=== PATIENT | male | born 1975 | race Caucasian/White ===

== ENCOUNTER → 2018-03-08 | Outpatient (CLI) | payer OTHER ==
[~2018-03-08] MED LIST: ABILIFY15 MG PO; AMITRIPTYLINE H10 M3 PO; ASPIRIN325 PO; CEFPODOXIME PR200 M1 PO; CIALIS2.5 MG; CYMBALTA PO; EFFEXOR XR37.5 MG PO; FLEXERIL PO; IBUPROFEN 800800 M1 PO; LAMICTAL XR200 MG PO; LAMOTRIGINE200 MG PO; LUNESTA2 MG PO; LUNESTA3 MG PO; MSL20MG/ML IMPLANT; Morphine Pump; NORCO 10-325 T1 EACH PO; NORCO 5-325 TA1 EACH PO; PREDNISONE 10 M10 MG PO; SEROQUEL 100 M100 MG; VENTOLIN HFA INH8 GM INH; VIAGRA50 MG; VIIBRYD40 MG; Venlafaxine PO; XANAX 0.25 MG0.25 MG; ZPAK PO
--- NOTE | 2018-03-15 10:43 | 24HR ---
[place] [address] HOLTER MONITOR REPORT Name: SHUKRIMAIKOL FLETCHER Room: [facility]#: [id number] Admission: 03/08/18 Attend Phys: Physician not on s Discharge: Date of : 77 Date of Service: 03/14/1850 Report #: [id number] THIS REPORT FOR: //name// [facility] Test Date: 2018-03-14 Test Time: 09:50:11 Pat Name: MAIKOL WATT Department: Room: Gender: Ssds Mk 2 Advanced Operator: : 1975 Requested By: Physician staff Order Number: [id number] Elvis MD: Chandler Rodriguez Interpretive Statements 1. sinus rhythm with sinus tachycardia 2. no symptoms recorded in diary Electronically Signed On 03-15-2018 10:43:00 CDT by Chandler Rodriguez [email or web address] <ELECTRONICALLY SIGNED> By: Chandler Rodriguez MD, [facility] 03/15/18 1043 0950 0950 Chandler Rodriguez MD, FACC /EPI
== END ==
LOC: M.CRD 10:20
DX: I49.8 Other specified cardiac arrhythmias (principal); R03.0 Elevated blood-pressure reading, without diagnosis of hypertension; R00.0 Tachycardia, unspecified; R00.9 Unspecified abnormalities of heart beat; G47.33 Obstructive sleep apnea (adult) (pediatric); F41.9 Anxiety disorder, unspecified

== ENCOUNTER 2018-10-14 17:17 | Emergency (ER) | payer OTHER ==
[~2018-10-14] VITALS: Ht 182.9 cm; Wt 81.7 kg
[2018-10-14] MEDS ORDERED: AMITRIPTYLINE H75 M2 PO (17:50)
[2018-10-14] MEDS ORDERED: NEURONTIN 300300 M1 PO (17:51)
[2018-10-14] MEDS ORDERED: EFFEXOR XR75 MG PO (17:51)
[2018-10-14] MEDS ORDERED: FLOMAX0.4 MG PO (17:51)
[2018-10-14] MEDS ORDERED: FLEXERIL PO (17:52)
[2018-10-14] MEDS ORDERED: AMBIEN 5 MG TABL5 M1 PO (17:52)
[2018-10-14] MEDS ORDERED: CLONAZEPAM 0.50.5 M1 PO (17:52)
[2018-10-14 17:56] LABS: URINE BILIRUBIN NEGATIVE (Negative); URINE BLOOD NEGATIVE (Negative); URINE CLARITY CLEAR; URINE COLOR STRAW; URINE GLUCOSE-RANDOM NEGATIVE (Negative); URINE KETONES NEGATIVE (Negative); URINE LEUKOCYTES-REFLEX NEGATIVE (Negative); URINE NITRITE-REFLEX NEGATIVE (Negative); URINE PROTEIN NEGATIVE (Negative); URINE SPECIFIC GRAVITY <= 1.005 (1.005-1.030); URINE UROBILINOGEN 0.2 E.U./dl (0.2-1.0)
[2018-10-14 18:03] LABS: AMP/METHAMP Negative (Negative); BARBITURATES POSITIVE (Negative); BENZODIAZEPINES Negative (Negative); COCAINE Negative (Negative); METHADONE Negative (Negative); OPIATES Negative (Negative); PCP Negative (Negative); THC Negative (Negative)
[2018-10-14 18:28] LABS: ABSOLUTE EOSINOPHILS 0.1 thou/uL (0.0-0.7); ABSOLUTE LYMPHOCYTES 1.9 thou/uL (0.8-5.3); ABSOLUTE MONOCYTES 0.6 thou/uL (0.0-1.2); ABSOLUTE NEUTROPHILS 4.3 thou/uL (1.6-8.1); BASOPHILS 0.5 %; EOSINOPHILS 1.6 %; HEMATOCRIT 43.2 % (42.0-52.0); HEMOGLOBIN 15.3 gm/dL (14.0-18.0); LYMPHOCYTES 27.5 %; MCH 31.2 pg (26.0-34.0); MCHC 35.3 g/dL (28.0-37.0); MCV 88.2 fL (80.0-100.0); MONOCYTES 8.2 %; MPV 7.7 fl. (7.2-11.1); NUCLEATED RBCS 0 /100WBC; PLATELET COUNT* 387 thou/uL (150-400); POLYS 62.2 %; RBC 4.89 mil/uL (4.50-6.00); RDW-CV 12.7 % (10.5-14.5); WBC 6.9 thou/uL (4.0-11.0)
[2018-10-14 18:52] LABS: ALBUMIN 4.4 g/dL (3.4-5.0); CALCIUM 9.3 mg/dL (8.5-10.1); CREATININE 0.7 mg/dL (0.6-1.3); POTASSIUM 3.8 mmol/L (3.5-5.1); TOTAL BILIRUBIN 0.3 mg/dL (<0.1-1.0); TOTAL PROTEIN 8.6 g/dL (6.4-8.2)
[2018-10-14] MEDS ORDERED: CLEOCIN HCL300 MG PO (20:04)
[2018-10-14 20:09] VITALS: BP 144/78
== END 2018-10-14 20:09 | disposition home or self-care (01) ==
LOC: M.ERS 17:17
PROVIDERS: Nurse Practitioner Family
DX: M54.5 Low back pain (principal); K04.7 Periapical abscess without sinus; R10.32 Left lower quadrant pain; F31.9 Bipolar disorder, unspecified; G43.909 Migraine, unspecified, not intractable, without status migrainosus; F17.210 Nicotine dependence, cigarettes, uncomplicated; Z79.899 Other long term (current) drug therapy

== ENCOUNTER 2019-05-02 13:54 | Emergency (ER) | payer OTHER ==
[~2019-05-02] VITALS: Ht 182.9 cm; Wt 81.2 kg
[~2019-05-02 13:54] MED LIST changes: +AMBIEN 5 MG TABL5 M1 PO; +AMITRIPTYLINE H75 M2 PO; +CLEOCIN HCL300 MG PO; +CLONAZEPAM 0.50.5 M1 PO; +EFFEXOR XR75 MG PO; +FLOMAX0.4 MG PO; +NEURONTIN 300300 M1 PO
[2019-05-02] MEDS ORDERED: LIPITOR 20 MG T20 M1 PO (14:11)
[2019-05-02] MEDS ORDERED: VIBRID (14:11)
[2019-05-02 14:18] LABS: URINE BLOOD NEGATIVE (Negative); URINE CLARITY CLEAR; URINE COLOR YELLOW; URINE GLUCOSE-RANDOM NEGATIVE (Negative); URINE KETONES 2+ (Negative); URINE LEUKOCYTES-REFLEX NEGATIVE (Negative); URINE NITRITE-REFLEX NEGATIVE (Negative); URINE PROTEIN TRACE (Negative); URINE SPECIFIC GRAVITY >= 1.030 (1.005-1.030); URINE UROBILINOGEN 0.2 E.U./dl (0.2-1.0)
[2019-05-02 14:20] LABS: ICTOTEST (BILI CONFIRMATORY) Negative (Negative); URINE BILIRUBIN 2+ (Negative)
[2019-05-02 14:37] LABS: ABSOLUTE BASOPHILS 0.1 thou/uL (0.0-0.2); ABSOLUTE EOSINOPHILS 0.1 thou/uL (0.0-0.7); ABSOLUTE LYMPHOCYTES 1.7 thou/uL (0.8-5.3); ABSOLUTE MONOCYTES 0.8 thou/uL (0.0-1.2); ABSOLUTE NEUTROPHILS 7.3 thou/uL (1.6-8.1); BASOPHILS 0.7 %; EOSINOPHILS 1.3 %; LYMPHOCYTES 17.3 %; MCH 34.8 pg (26.0-34.0); MCHC 37.5 g/dL (28.0-37.0); MCV 92.6 fL (80.0-100.0); MONOCYTES 7.7 %; MPV 7.6 fl. (7.2-11.1); NUCLEATED RBCS 0 /100WBC; PLATELET COUNT* 486 thou/uL (150-400); RDW-CV 13.2 % (10.5-14.5)
[2019-05-02 14:39] LABS: HEMATOCRIT 48.8 % (42.0-52.0); HEMOGLOBIN 17.4 gm/dL (14.0-18.0); RBC 5.34 mil/uL (4.50-6.00)
[2019-05-02 14:41] LABS: CALCIUM 9.2 mg/dL (8.5-10.1); CREATININE 0.9 mg/dL (0.6-1.3); POTASSIUM 3.6 mmol/L (3.5-5.1)
[2019-05-02 14:45] LABS: ALBUMIN 3.8 g/dL (3.4-5.0); TOTAL BILIRUBIN 0.6 mg/dL (<0.1-1.0); TOTAL PROTEIN 7.8 g/dL (6.4-8.2)
[2019-05-02] MEDS ORDERED: COMPAZINE10 MG PO (17:19)
[2019-05-02] MEDS ORDERED: BENTYL 10 MG CA10 M1 PO (17:19)
[2019-05-02 17:38] VITALS: BP 122/68
== END 2019-05-02 17:41 | disposition home or self-care (01) ==
LOC: M.ERS 13:54
PROVIDERS: Nurse Practitioner Family
DX: K52.9 Noninfective gastroenteritis and colitis, unspecified (principal); F17.210 Nicotine dependence, cigarettes, uncomplicated; F31.9 Bipolar disorder, unspecified; G43.909 Migraine, unspecified, not intractable, without status migrainosus; G47.00 Insomnia, unspecified; Z98.890 Other specified postprocedural states

== ENCOUNTER 2019-05-10 20:29 | Emergency (ER) | payer OTHER ==
[~2019-05-10] VITALS: Ht 195.6 cm; Wt 88.1 kg
[~2019-05-10 20:29] MED LIST changes: +BENTYL 10 MG CA10 M1 PO; +COMPAZINE10 MG PO; +LIPITOR 20 MG T20 M1 PO; +VIIBRYD40 MG PO
[2019-05-10] MEDS ORDERED: AUGMENTIN 875-1 EACH PO (20:47)
[2019-05-10] MEDS ORDERED: MEDROLDOSEPACK PO (20:47)
[2019-05-10 21:19] LABS: ABSOLUTE LYMPHOCYTES 1.5 thou/uL (0.8-5.3); ABSOLUTE MONOCYTES 0.4 thou/uL (0.0-1.2); ABSOLUTE NEUTROPHILS 5.9 thou/uL (1.6-8.1); BASOPHILS 0.6 %; EOSINOPHILS 0.2 %; HEMATOCRIT 36.6 % (42.0-52.0); HEMOGLOBIN 12.9 gm/dL (14.0-18.0); LYMPHOCYTES 19.1 %; MCH 31.7 pg (26.0-34.0); MCHC 35.2 g/dL (28.0-37.0); MCV 90.1 fL (80.0-100.0); MONOCYTES 5.5 %; MPV 7.1 fl. (7.2-11.1); NUCLEATED RBCS 0 /100WBC; PLATELET COUNT* 492 thou/uL (150-400); POLYS 74.6 %; RBC 4.07 mil/uL (4.50-6.00); WBC 7.9 thou/uL (4.0-11.0)
[2019-05-10 21:29] LABS: CREATININE 0.7 mg/dL (0.6-1.3); POTASSIUM 3.8 mmol/L (3.5-5.1)
[2019-05-10 21:38] LABS: ALBUMIN 2.1 g/dL (3.4-5.0); TOTAL BILIRUBIN 0.1 mg/dL (<0.1-1.0); TOTAL PROTEIN 4.8 g/dL (6.4-8.2)
[2019-05-10] MEDS ORDERED: POTASSIUM20 PO (21:52)
[2019-05-10] MEDS ORDERED: LASIX 40 MG TAB40 M2 PO (21:52)
[2019-05-10 22:02] VITALS: BP 123/74
== END 2019-05-10 22:03 | disposition home or self-care (01) ==
LOC: M.ERS 20:29
PROVIDERS: Family Medicine
DX: R60.0 Localized edema (principal); F31.9 Bipolar disorder, unspecified; G43.909 Migraine, unspecified, not intractable, without status migrainosus; F17.210 Nicotine dependence, cigarettes, uncomplicated; Z98.890 Other specified postprocedural states

== ENCOUNTER → 2019-05-15 | Outpatient (CLI) | payer OTHER ==
[~2019-05-15] MED LIST changes: +AUGMENTIN 875-1 EACH PO; +KEFLEX500 M2 PO; +LASIX 40 MG TAB40 M2 PO; +MEDROLDOSEPACK PO; +POTASSIUM20 PO; +SPIRONOLACTONE100 M1 PO
--- NOTE | 2019-05-15 12:29 | 2DMMODE ---
[place] [address] 2 D/M-MODE ECHOCARDIOGRAM Name: MAIKOL WATT Room: [facility]#: [id number] Admission: 05/15/19 Attend Phys: Priscilla Ramirez Discharge: Date of : 77 Date of Service: 05/15/19 1228 Report #: [id number] THIS REPORT FOR: //name// APPROVED REPORT Study performed: 05/15/2019 11:31:24 EXAM: Comprehensive 2D, Doppler, and color-flow Echocardiogram Patient Location: Out-Patient BSA: 2.13 HR: 102 bpm BP: 102/70 mmHg Other Information Study Quality: Good Indications Peripheral Edema 2D Dimensions IVSd: 10.93 (7-11mm) LVOT Diam: 20.42 (18-24mm) LVDd: 50.31 mm PWd: 9.52 (7-11mm) Ascending Ao: 27.88 (22-36mm) LVDs: 29.75 (25-40mm) Aortic Root: 27.27 mm Volumes Left Atrial Volume (Systole) LA ESV Index: 16.60 mL/m2 Aortic Valve AoV Peak Abdon.: 0.95 m/s AO Peak Gr.: 3.64 mmHg LVOT Max P.14 mmHg AO Mean Gr.: 2.18 mmHg LVOT Mean P.85 mmHg LVOT Max V: 1.02 m/s AO V2 VTI: 16.04 cm LVOT Mean V: 0.62 m/s HUANG (VTI): 3.73 cm2 LVOT V1 VTI: 18.24 cm Mitral Valve E/A Ratio: 1.35 MV Decel. Time: 163.68 ms MV E Max Abdon.: 0.76 m/s MV PHT: 47.47 ms MVA (PHT): 4.63 [place]2 [place] [address] 2 D/M-MODE ECHOCARDIOGRAM Name: MAIKOL WATT Room: [facility]#: [id number] Admission: 05/15/19 Attend Phys: Priscilla Ramirez Discharge: Date of : 77 Date of Service: 05/15/19 1228 Report #: [id number] TDI E/Lateral E': 7.60 E/Medial E': 5.85 Medial E' Abdon.: 0.13 m/s Lateral E' Abdon.: 0.10 m/s Pulmonary Valve PV Peak Abdon.: 1.06 m/s PV Peak Gr.: 4.50 mmHg Tricuspid Valve RAP Estimate: 5.00 mmHg TR Peak Gr.: 20.90 mmHg RVSP: 25.90 mmHg PA Pressure: 25.90 mmHg Left Ventricle The left ventricle is normal size. There is normal LV segmental wall motion. There is normal left ventricular wall thickness. Left ventricular systolic function is normal. The left ventricular ejection fraction is within the normal range. LVEF is 60%. The left ventricular diastolic function is normal. Right Ventricle The right ventricle is normal size. The right ventricular systolic function is normal. Atria The left atrium size is normal. The right atrium size is normal. Aortic Valve The aortic valve is normal in structure. No aortic regurgitation is present. There is no aortic valvular stenosis. Mitral Valve The mitral valve is normal in structure. There is no mitral valve regurgitation noted. No evidence of mitral valve stenosis. Tricuspid Valve The tricuspid valve is normal in structure. Mild tricuspid regurgitation. Pulmonic Valve The pulmonary valve is normal in structure. There is no pulmonic valvular regurgitation[place] [address] 2 D/M-MODE ECHOCARDIOGRAM Name: MAIKOL WATT Room: [facility]#: [id number] Admission: 05/15/19 Attend Phys: Priscilla Ramirez Discharge: Date of : 77 Date of Service: 05/15/19 1228 Report #: [id number] The aortic root is normal in size. IVC is normal in size and collapses >50% with inspiration. Pericardium There is no pericardial effusion. <Conclusion> The left ventricle is normal size. There is normal left ventricular wall thickness. Left ventricular systolic function is normal. The left ventricular ejection fraction is within the normal range. LVEF is 60%. The left ventricular diastolic function is normal. The right ventricle is normal size. The left atrium size is normal. The aortic valve is normal in structure. The mitral valve is normal in structure. The tricuspid valve is normal in structure. IVC is normal in size and collapses >50% with inspiration. There is no pericardial effusion. There is normal LV segmental wall motion. <ELECTRONICALLY SIGNED> By: Freeman Bullard MD, FACC 05/15/19 1228 1228 1228 Freeman Bullard MD, FACC /INF
== END ==
LOC: M.CRD 11:30
DX: I07.1 Rheumatic tricuspid insufficiency (principal); R60.0 Localized edema

== ENCOUNTER 2019-05-18 18:19 | Inpatient (IN) | payer OTHER ==
[~2019-05-18] VITALS: Ht 182.9 cm; Wt 89.8 kg
[~2019-05-18 18:19] MED LIST changes: -KEFLEX500 M2 PO; -SPIRONOLACTONE100 M1 PO
[2019-05-18 18:20] VITALS: BP 130/70
[2019-05-18] MEDS ORDERED: SPIRONOLACTONE100 M1 PO (18:29)
[2019-05-18] MEDS ORDERED: KEFLEX500 M2 PO (18:30)
[2019-05-18 19:10] LABS: ABSOLUTE BASOPHILS 0.1 thou/uL (0.0-0.2); ABSOLUTE EOSINOPHILS 0.3 thou/uL (0.0-0.7); ABSOLUTE LYMPHOCYTES 2.1 thou/uL (0.8-5.3); ABSOLUTE MONOCYTES 0.6 thou/uL (0.0-1.2); BASOPHILS 0.9 %; EOSINOPHILS 3.3 %; HEMATOCRIT 38.9 % (42.0-52.0); HEMOGLOBIN 13.6 gm/dL (14.0-18.0); LYMPHOCYTES 23.2 %; MCH 32.5 pg (26.0-34.0); MONOCYTES 6.5 %; MPV 7.3 fl. (7.2-11.1); NUCLEATED RBCS 0 /100WBC; PLATELET COUNT* 480 thou/uL (150-400); POLYS 66.1 %; RBC 4.18 mil/uL (4.50-6.00); RDW-CV 13.7 % (10.5-14.5); WBC 9.1 thou/uL (4.0-11.0)
[2019-05-18 19:19] LABS: CALCIUM 9.2 mg/dL (8.5-10.1); CREATININE 0.9 mg/dL (0.6-1.3); POTASSIUM 3.9 mmol/L (3.5-5.1)
[2019-05-18 19:29] LABS: ALBUMIN 2.7 g/dL (3.4-5.0); TOTAL BILIRUBIN 0.1 mg/dL (<0.1-1.0)
[2019-05-18 20:01] VITALS: BP 118/54
[2019-05-18 20:20] VITALS: BP 130/79
--- NOTE | 2019-05-19 02:33 | NUR ---
PT AMDITTED TO ROOM 317 FROM ER. ORIENTED TO ROOM AND CALL IGHT. ADMISSION HX AND ASSESSMENT DOCUMENTED. CHILDREN VISITED PT. AT BEDSIDE AND IS SPENDING THE NIGHT. CALL LIGHT WITHN REACH. WILL CONTINUE TO MONITOR.
--- NOTE | 2019-05-19 05:46 | NUR ---
PT ALERT AND ORIENTED. VSS ON RA. ASSESSMENT DOCUMENTED. HOME MEDS RESTARTED VIA DR WATTERS PER PT'S REQUEST. MEDS GIVEN PER EMAR. AT BEDSIDE THIS SHIFT. PT SLEPT MOST OF SHIFT. CALL LIGHT WITHIN REACH. HOURLY ROUNDINGS MADE. WILL CONTINUE TO MONITOR.
[2019-05-19 07:50] VITALS: BP 120/78
[2019-05-19 19:20] VITALS: BP 136/81
--- NOTE | 2019-05-19 20:13 | NUR ---
UP AD MELANIA IN ROOM. ALERT AND ORIENTED. DENIES NEED FOR PAIN MEDICATION WHEN OFFERED. IVF AND ANTIBIODICS INFUSING WITHOUT DIFFICULTY. BILATERAL LOWER EXTREMITIES REMAIN RED AND WARM. CALL LIGHT WITHIN REACH.
[2019-05-20 07:30] VITALS: BP 109/68
--- NOTE | 2019-05-20 07:45 | NUR ---
PT ALERT AND ORIENTED. VSS ON RA. ASSESSMENT DOCUMENTED. NIGHTS MEDS GIVEN EARLY PER PT'S REQUEST. PT WAS UPSET BEGINNING OF SHIFT THAT HE DID NOT GET HIS MEDS AT 1900. I EXPLAINED THAT WE START REPORTS AT THAT TIME AND I BROUGHT IT IN SOON I WAS DONE RECIEVING REPORTS. PT EXPRESSED DISSATISFACTION WITH HOSPITAL CARE. PER PT "I FEEL LIKE ALL THAT IM GETTING HERE I CAN GET AT HOME" I EXPLAINED TO PT THAT HE'S GETTING IV ABX HERE WHICH HE CANT GET AT HOME. I TOLD HIM HE COULD ALSO EXPRESS HIS CONCERNS FOR HIS TREATMENT TO THE DR'S. PT BECAME CALM AND COOPERATIVE. I DID VS AND GAVE HIS MEDS. GAVE HIM CUP OF COFFEE PER HIS REQUEST AND HE SLEPT. CALL LIGHT WITHIN REACH, HOURLY ROUNDINGS MADE. WILL CONTINUE TO MONITOR.
--- NOTE | 2019-05-20 11:07 | EKG ---
[place] [address] ELECTROCARDIOGRAM REPORT Name: MAIKOL WATT Room: [address] ADM IN .R.#: [id number] Admission: 05/18/19 Attend Phys: Tomasz Mak Discharge: Date of : 77 Report #: [id number] THIS REPORT FOR: //name// [facility] ED Test Date: 2019-05-18 Test Time: 18:50:51 Pat Name: MAIKOL WATT Department: Room: [facility] Gender: M Parlor Maid: FLOR : 1975 Requested By: Mariana Cage Order Number: [id number] MD: Chandler Rodriguez Measurements Intervals [place] Rate: 102 P: 49 DC: 176 QRS: 50 QRSD: 97 T: 34 QT: 346 QTc: 451 Interpretive Statements Sinus tachycardia Baseline wander in lead(s) V1 Compared to ECG 10/30/2015 11:02:13 ST (T wave) deviation no longer present Possible ischemia no longer present Electronically Signed On 05-20-2019 11:06:53 CDT by Chandler Rodriguez [email or web address] <ELECTRONICALLY SIGNED> By: Chandler Rodriguez MD, FACC 05/20/19 1106 1850 1850 Chandler Rodriguez MD, FAC /EPI
[2019-05-20 13:10] VITALS: BP 109/68
[2019-05-20] MEDS ORDERED: CLEOCIN HCL300 MG PO (13:10)
[2019-05-20 13:44] VITALS: BP 109/68
--- NOTE | 2019-05-20 13:45 | NUR ---
ASSESSMENT COMPLETE. PT DC HOME. INSTRUCTIONS AND PRESCRIPTION GIVEN, PT VERBALIZES UNDERSTANDING. PT HAS FOLLOW UP APPT TODAY WITH PCP. ALL BELONGINGS SENT WITH PT. SEE ASSESSMENT AND VITALS FOR OTHER DETAILS
== END 2019-05-20 13:45 | disposition home or self-care (01) | DRG 603 ==
LOC: M.ERS 18:19 → M.3W 19:16 → M.TBA-ER 19:16 → M.3W 20:20
PROVIDERS: Nurse Practitioner Family; ADMIT Internal Medicine
DX: L03.115 Cellulitis of right lower limb (principal); E44.1 Mild protein-calorie malnutrition; F31.9 Bipolar disorder, unspecified; G47.00 Insomnia, unspecified; G62.9 Polyneuropathy, unspecified; G43.909 Migraine, unspecified, not intractable, without status migrainosus; L03.116 Cellulitis of left lower limb; Z68.26 Body mass index [BMI] 26.0-26.9, adult

== ENCOUNTER → 2019-06-03 | Outpatient (CLI) | payer OTHER ==
[~2019-06-03] MED LIST changes: +KEFLEX500 M2 PO; +SPIRONOLACTONE100 M1 PO
== END ==
LOC: M.ULTRA 07:25
DX: R10.12 Left upper quadrant pain (principal); Z90.5 Acquired absence of kidney

== ENCOUNTER → 2019-09-17 | Outpatient (CLI) | payer OTHER | LOC: M.CT 11:06 | DX: R10.12 Left upper quadrant pain (principal); Z90.5 Acquired absence of kidney ==